=== PATIENT | male | born 1970 | race African-American/Black ===

== ENCOUNTER 2019-09-20 15:52 | Inpatient (IN) | payer MEDICAID ==
[~2019-09-20] VITALS: Ht 182.9 cm; Wt 85.8 kg
[2019-09-20] MEDS ORDERED: IV NORMAL SALINE 1,000ML 1,000 ML IV SCH (16:03)
[2019-09-20] MEDS ORDERED: ONDANSETRON PF 4 MG/2 ML VIAL. IVP ONE (16:15)
[2019-09-20] MEDS ORDERED: diphenhydrAMINE 50 MG/ML VIAL ONE (16:19)
--- NOTE | 2019-09-20 16:24 | EKG ---
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
[2019-09-20 16:25] LABS: BASO # 0.1 x10^3/uL (0.0-0.2); BASO % 2 % (0-3); EOS # 0.7 x10^3/uL (0.0-0.7); EOS % 9 % (0-3); HEMATOCRIT 38.5 % (39.0-53.0); HEMOGLOBIN 12.4 g/dL (13.0-17.5); LYMPH # 1.3 x10^3/uL (1.0-4.8); LYMPH % 16 % (24-48); MEAN CORPUSCULAR HEMOGLOBIN 29 pg (25-35); MEAN CORPUSCULAR HGB CONC 32 g/dL (31-37); MEAN CORPUSCULAR VOLUME 90 fL (79-100); MONO # 0.8 x10^3/uL (0.0-1.1); MONO % 10 % (0-9); NEUT # 4.9 x10^3uL (1.8-7.7); NEUT % 63 % (31-73); PLATELET COUNT 279 x10^3/uL (140-400); RED CELL DISTRIBUTION WIDTH 15.5 % (11.5-14.5); WHITE BLOOD COUNT 7.8 x10^3/uL (4.0-11.0)
[2019-09-20 16:30] LABS: CALCIUM 8.9 mg/dL (8.5-10.1); CREATININE 0.9 mg/dL (0.7-1.3); GFR 108.1; POTASSIUM 3.8 mmol/L (3.5-5.1)
[2019-09-20] MEDS ORDERED: diphenhydrAMINE 50 MG/ML VIAL IVP ONE ×2 (16:30→19:15)
[2019-09-20 16:36] LABS: ALBUMIN 3.3 g/dL (3.4-5.0); ALBUMIN/GLOBULIN RATIO 0.9 (1.0-1.7); TOTAL BILIRUBIN 0.1 mg/dL (0.2-1.0)
--- NOTE | 2019-09-20 17:31 | RAD ---
CT ABDOMEN PELVIS WO CONTRAST Indication: Abdominal pain. Exposure: One or more of the following individualized dose reduction techniques were utilized for this examination: 1. Automated exposure control 2. Adjustment of the mA and/or kV according to patient size 3. Use of iterative reconstruction technique. Comparison: None are available. Technique: No intravenous contrast given. No oral contrast per request. Findings: Evaluation of solid viscera, bowel and vasculature is compromised by the noncontrast technique. Comparison: Abdomen CT scan 07/02/2019. FINDINGS: There is some image degradation due to the patient's arms which are at the side. Nodularity at the confluence of the right minor fissure and right major fissure, partially seen on the uppermost slice, measuring 7 mm. This was not included on the prior study. Another smaller nodule just medial to this is partially seen, measures 4 mm. There is some patchy opacity in the right dependent lower lobe. Mild dependent opacity or atelectasis in the left posterior lower lobe. Liver and spleen appear unremarkable. The pancreas is difficult to separate from adjacent unopacified bowel loops but no evidence of focal attenuation abnormality. No evidence of adrenal mass. Kidneys demonstrate no evidence of hydronephrosis or renal calculus. Gallbladder surgically absent. Aorta is nonaneurysmal. No significant pathologic lymph node enlargement is identified. Inferior vena cava filter is noted. Note that some of the legs of the filter protrude beyond the lumen of the inferior vena cava. Stomach is not distended. No significant small bowel distention. Moderate stool throughout the colon and rectum. No evidence of colonic wall thickening. The appendix appears normal. No evidence of ascites. No evidence of pneumoperitoneum. The urinary bladder appears unremarkable. No evidence of pelvic mass. Degenerative changes of the lower spine, particularly the lumbosacral junction. Vertebral body height and alignment intact. No evidence of acute fracture or aggressive bone destruction. Degenerative changes at both hips. IMPRESSION: 1. Mild opacities in both posterior lower lungs, with somewhat more confluent components in the right lower lobe. This may represent pneumonia, but recommend short-term follow-up CT chest in one or 2 months or after acute treatment for further evaluation. 2. Areas of nodularity in the right lung base, partially visualized. Significance uncertain, but these could be further evaluated on follow-up CT chest is recommended above. Electronically signed by: Ashutosh Dumont MD (09/20/2019 5:28 PM) [facility]
--- NOTE | 2019-09-20 18:01 | PHYS DOC ---
Past History Past Medical History: High Cholesterol, Hypertension, Other Additional Past Medical Histor: sarcodosis; pancreatitis Past Surgical History: Cholecystectomy Alcohol Use: None Adult General Chief Complaint Chief Complaint: SHORTNESS OF BREATH HPI HPI Patient is a 49-year-old male who presents with complaint of shortness of breath, stating that it feels like his throat is swelling and he has swelling to his jaws. Patient also indicates that he has epigastric abdominal pain radiating into his back. Patient states he has a history of pancreatitis and rates the pain at a 10 out of 10. Patient also indicates that he has had nausea and vomiting. Staff noticed the patient still had remnants of stickers on the chest and had asked when was the last time he had been admitted and he stated it was over a month ago. When confronted by me, patient does admit that he was just released from [facility] yesterday and states that he thought that he was better but he is just not getting better and he feels like he needs to be admitted into the hospital again.[] Review of Systems Review of Systems Constitutional: Denies fever or chills [] Respiratory: Complains of shortness of breath [] Cardiovascular: No additional information not addressed in HPI [] GI: Complains of abdominal pain with nausea and vomiting. Denies diarrhea [] Musculoskeletal: Complains of mid back pain [] Integument: Denies rash or skin lesions [] Neurologic: Denies headache, focal weakness or sensory changes [] All other systems were reviewed and found to be within normal limits, except as documented in this note. Current Medications Current Medications Current Medications Medications (Trade) Dose Ordered Sig/Ruth Start Time Stop Time Status Last Admin Dose Admin Diphenhydramine HCl (Benadryl) 50 mg STK-MED ONCE 09/20/19 16:19 09/20/19 16:19 DC Fentanyl Citrate (Fentanyl 2ml Vial) 50 mcg PRN Q15MIN PRN 09/20/19 16:15 09/21/19 16:14 Lorazepam (Ativan Inj) 2 mg 1X ONCE 09/20/19 16:30 09/20/19 16:38 DC 09/20/19 16:30 2 MG Ondansetron HCl (Zofran) 4 mg 1X ONCE 09/20/19 16:15 09/20/19 16:19 DC Sodium Chloride 1,000 ml @ 1,000 mls/hr Q1H 2/22/20 16:03 09/20/19 17:02 DC 09/20/19 16:03 1,000 MLS/HR Allergies Allergies Allergies Coded Allergies Type Severity Reaction Last Updated Verified NSAIDS (Non-Steroidal Anti-Inflamma Allergy Unknown 09/20/19 Yes iodine Allergy Unknown 09/20/19 Yes ketorolac Allergy Unknown 09/20/19 Yes methylprednisolone Allergy Unknown 09/20/19 Yes morphine Allergy Unknown 09/20/19 Yes prednisone Allergy Unknown 09/20/19 Yes Physical Exam Physical Exam Constitutional: Well developed, well nourished, appears anxious. [] HENT: Normocephalic, atraumatic, bilateral external ears normal, oropharynx moist, no oral exudates, nose normal. [] Eyes: PERRLA, EOMI, conjunctiva normal, no discharge. [] Neck: Normal range of motion, no tenderness, supple, no stridor. [] Cardiovascular: Tachycardic rate with regular rhythm[] Lungs & Thorax: Bilateral breath sounds clear to auscultation [] Abdomen: Bowel sounds normal, soft, with epigastric tenderness. [] Skin: Warm, dry, no erythema, no rash. [] Extremities: No tenderness, no cyanosis, no clubbing, ROM intact. [] Neurologic: Alert and oriented X 3, no focal deficits noted. [] Current Patient Data Vital Signs Vital Signs Date Time Temp Pulse Resp B/P (MAP) Pulse Ox O2 Delivery O2 Flow Rate FiO2 09/20/19 16:35 98.6 140 36 147/91 (109) 98 Room Air Lab Results Laboratory Tests Test 09/20/19 16:08 White Blood Count 7.8 x10^3/uL (4.0-11.0) Red Blood Count 4.30 x10^6/uL (4.30-5.70) Hemoglobin 12.4 g/dL (13.0-17.5) L Hematocrit 38.5 % (39.0-53.0) L Mean Corpuscular Volume 90 fL (79-100) Mean Corpuscular Hemoglobin 29 pg (25-35) Mean Corpuscular Hemoglobin Concent 32 g/dL (31-37) Red Cell Distribution Width 15.5 % (11.5-14.5) H Platelet Count 279 x10^3/uL (140-400) Neutrophils (%) (Auto) 63 % (31-73) Lymphocytes (%) (Auto) 16 % (24-48) L Monocytes (%) (Auto) 10 % (0-9) H Eosinophils (%) (Auto) 9 % (0-3) H Basophils (%) (Auto) 2 % (0-3) Neutrophils # (Auto) 4.9 x10^3uL (1.8-7.7) Lymphocytes # (Auto) 1.3 x10^3/uL (1.0-4.8) Monocytes # (Auto) 0.8 x10^3/uL (0.0-1.1) Eosinophils # (Auto) 0.7 x10^3/uL (0.0-0.7) Basophils # (Auto) 0.1 x10^3/uL (0.0-0.2) Sodium Level 145 mmol/L (136-145) Potassium Level 3.8 mmol/L (3.5-5.1) Chloride Level 108 mmol/L (98-107) H Carbon Dioxide Level 28 mmol/L (21-32) Anion Gap 9 (6-14) Blood Urea Nitrogen 13 mg/dL (8-26) Creatinine 0.9 mg/dL (0.7-1.3) Estimated GFR (Cockcroft-Gault) 108.1 BUN/Creatinine Ratio 14 (6-20) Glucose Level 129 mg/dL (70-99) H Calcium Level 8.9 mg/dL (8.5-10.1) Total Bilirubin 0.1 mg/dL (0.2-1.0) L Aspartate Amino Transferase (AST) 16 U/L (15-37) Alanine Aminotransferase (ALT) 23 U/L (16-63) Alkaline Phosphatase 114 U/L (46-116) Troponin I Quantitative < 0.017 ng/mL (0-0.055) Total Protein 7.0 g/dL (6.4-8.2) Albumin 3.3 g/dL (3.4-5.0) L Albumin/Globulin Ratio 0.9 (1.0-1.7) L Lipase 245 U/L (73-393) EKG EKG [] Radiology/Procedures Radiology/Procedures [] Impressions: PROCEDURE: CT ABDOMEN PELVIS WO CONTRAST CT ABDOMEN PELVIS WO CONTRAST Indication: Abdominal pain. Exposure: One or more of the following individualized dose reduction techniques were utilized for this examination: 1. Automated exposure control 2. Adjustment of the mA and/or kV according to patient size 3. Use of iterative reconstruction technique. Comparison: None are available. Technique: No intravenous contrast given. No oral contrast per request. Findings: Evaluation of solid viscera, bowel and vasculature is compromised by the noncontrast technique. Comparison: Abdomen CT scan 07/02/2019. FINDINGS: There is some image degradation due to the patient's arms which are at the side. Nodularity at the confluence of the right minor fissure and right major fissure, partially seen on the uppermost slice, measuring 7 mm. This was not included on the prior study. Another smaller nodule just medial to this is partially seen, measures 4 mm. There is some patchy opacity in the right dependent lower lobe. Mild dependent opacity or atelectasis in the left posterior lower lobe. Liver and spleen appear unremarkable. The pancreas is difficult to separate from adjacent unopacified bowel loops but no evidence of focal attenuation abnormality. No evidence of adrenal mass. Kidneys demonstrate no evidence of hydronephrosis or renal calculus. Gallbladder surgically absent. Aorta is nonaneurysmal. No significant pathologic lymph node enlargement is identified. Inferior vena cava filter is noted. Note that some of the legs of the filter protrude beyond the lumen of the inferior vena cava. Stomach is not distended. No significant small bowel distention. Moderate stool throughout the colon and rectum. No evidence of colonic wall thickening. The appendix appears normal. No evidence of ascites. No evidence of pneumoperitoneum. The urinary bladder appears unremarkable. No evidence of pelvic mass. Degenerative changes of the lower spine, particularly the lumbosacral junction. Vertebral body height and alignment intact. No evidence of acute fracture or aggressive bone destruction. Degenerative changes at both hips. IMPRESSION: 1. Mild opacities in both posterior lower lungs, with somewhat more confluent components in the right lower lobe. This may represent pneumonia, but recommend short-term follow-up CT chest in one or 2 months or after acute treatment for further evaluation. 2. Areas of nodularity in the right lung base, partially visualized. Significance uncertain, but these could be further evaluated on follow-up CT chest is recommended above. Electronically signed by: Ashutosh Dumont MD (09/20/2019 5:28 PM) [id number] Course & Med Decision Making Course & Med Decision Making Pertinent Labs and Imaging studies reviewed. (See chart for details) [] Dragon Disclaimer Dragon Disclaimer This electronic medical record was generated, in whole or in part, using a voice recognition dictation system. Departure Departure: Impression: Primary Impression: Epigastric abdominal pain Additional Impressions: Facial pain Dyspnea Disposition: ADMITTED INPATIENT Admitting Physician: Joce Espinoza Condition: IMPROVED Referrals: PCP,NO (PCP) Problem Qualifiers Additional Impressions: Dyspnea Dyspnea type: unspecified Qualified Codes: R06.00 - Dyspnea, unspecified DELORES GALARZA Jr. DO Sep 20, 2019 18:01
[2019-09-20] MEDS ORDERED: ACETAMINOPHEN 325 MG TABLET PO PRN (18:15)
[2019-09-20 19:30] VITALS: BP 138/83
[2019-09-20] MEDS ORDERED: DIPH25CA58 PO (20:08)
[2019-09-20] MEDS ORDERED: FENT1PAT91 TD (20:08)
[2019-09-20] MEDS ORDERED: LISI10TA2 PO (20:08)
[2019-09-20] MEDS ORDERED: PROM25AM6 IJ (20:08)
[2019-09-20] MEDS ORDERED: OXYC5TAB88 PO (20:08)
[2019-09-20] MEDS ORDERED: APIX5TAB3 PO (20:08)
[2019-09-20] MEDS ORDERED: OXYC10TA46 PO (20:08)
[2019-09-20] MEDS ORDERED: PROMETHAZINE 25 MG SUPP.RECT. PR PRN (20:30)
[2019-09-20] MEDS: diphenhydrAMINE HCL 25 MG CAPSULE PO SCH (20:39)
[2019-09-20] MEDS: oxyCODONE ER 10 MG TAB.ER.12H PO SCH (20:40)
[2019-09-20] MEDS ORDERED: APIXABAN 5 MG TABLET. PO SCH (21:00)
[2019-09-20] MEDS: IPRATRPIUM/ALBUTEROL 0.5/2.5MG 3 ML NEBU. NEB SCH (21:45)
[2019-09-20] MEDS: oxyCODONE IR 5 MG TABLET PO PRN (23:00)
[2019-09-20] MEDS: IV NORMAL SALINE 1,000ML 1,000 ML IV SCH (23:00)
[2019-09-20 23:15] VITALS: BP 143/90
[2019-09-21 01:05] LABS: BARBITURATES NEG (NEG); BENZODIAZEPINES NEG (NEG); CANNABINOIDS NEG (NEG); COCAINE NEG (NEG); METHADONE NEG (NEG); OPIATES POS (NEG); PHENCYCLIDINE NEG (NEG)
[2019-09-21 01:06] LABS: AMPHETAMINE/METHAMPHETAMINE NEG (NEG)
[2019-09-21 01:11] LABS: BILIRUBIN,URINE NEG (NEG); CLARITY,URINE CLEAR; COLOR,URINE YELLOW; GLUCOSE,URINE NEG (NEG); NITRITE,URINE NEG (NEG); RBC,URINE OCC /HPF (0-2); UROBILINOGEN,URINE 0.2 mg/dL (0.2 mg/dL); WBC,URINE OCC /HPF (0-4)
[2019-09-21 01:12] LABS: BACTERIA,URINE 0 /HPF (0-FEW); SQUAMOUS EPITHELIAL CELL,UR OCC /LPF
[2019-09-21] MEDS ORDERED: ATOR40TA59 PO (01:42)
[2019-09-21] MEDS ORDERED: AMLO10TA4 PO (01:42)
[2019-09-21] MEDS ORDERED: OXYC1TAB22 PO (01:42)
[2019-09-21] MEDS ORDERED: LORA-254 PO (01:42)
[2019-09-21] MEDS ORDERED: PANT40TA3 PO (01:42)
[2019-09-21] MEDS: oxyCODONE/APAP 10/325 1 TAB TABLET PO PRN ×2 (04:36→10:31)
[2019-09-21] MEDS: APIXABAN 5 MG TABLET. PO SCH ×2 (05:00→07:57)
[2019-09-21 05:32] VITALS: BP 133/83
[2019-09-21] MEDS: IPRATRPIUM/ALBUTEROL 0.5/2.5MG 3 ML NEBU. NEB SCH ×2 (05:33→09:30)
[2019-09-21 06:54] LABS: ALBUMIN 2.7 g/dL (3.4-5.0); ALBUMIN/GLOBULIN RATIO 0.7 (1.0-1.7); CALCIUM 8.4 mg/dL (8.5-10.1); CREATININE 0.8 mg/dL (0.7-1.3); GFR 123.8; POTASSIUM 3.8 mmol/L (3.5-5.1); TOTAL BILIRUBIN 0.1 mg/dL (0.2-1.0); TOTAL PROTEIN 6.5 g/dL (6.4-8.2)
[2019-09-21 07:04] LABS: BASO # 0.1 x10^3/uL (0.0-0.2); BASO % 1 % (0-3); EOS # 0.7 x10^3/uL (0.0-0.7); EOS % 13 % (0-3); HEMATOCRIT 37.4 % (39.0-53.0); HEMOGLOBIN 11.9 g/dL (13.0-17.5); LYMPH # 1.2 x10^3/uL (1.0-4.8); LYMPH % 23 % (24-48); MEAN CORPUSCULAR HEMOGLOBIN 29 pg (25-35); MEAN CORPUSCULAR HGB CONC 32 g/dL (31-37); MEAN CORPUSCULAR VOLUME 91 fL (79-100); MONO # 0.7 x10^3/uL (0.0-1.1); MONO % 13 % (0-9); NEUT # 2.6 x10^3uL (1.8-7.7); NEUT % 49 % (31-73); PLATELET COUNT 244 x10^3/uL (140-400); RED BLOOD COUNT 4.14 x10^6/uL (4.30-5.70); RED CELL DISTRIBUTION WIDTH 15.2 % (11.5-14.5); WHITE BLOOD COUNT 5.3 x10^3/uL (4.0-11.0)
[2019-09-21] MEDS: diphenhydrAMINE HCL 25 MG CAPSULE PO SCH ×2 (07:56→13:00)
[2019-09-21] MEDS: oxyCODONE ER 10 MG TAB.ER.12H PO SCH (07:56)
[2019-09-21] MEDS: oxyCODONE IR 5 MG TABLET PO PRN (08:25)
[2019-09-21] MEDS ORDERED: FAMOTIDINE 20 MG/2 ML VIAL ONE (09:15)
[2019-09-21] MEDS ORDERED: diphenhydrAMINE 50 MG/ML VIAL ONE (09:15)
[2019-09-21] MEDS ORDERED: LORazepam 1 MG TABLET PO ONE (09:15)
[2019-09-21] MEDS: IV NORMAL SALINE 1,000ML 1,000 ML IV SCH (09:29)
[2019-09-21] MEDS ORDERED: diphenhydrAMINE 50 MG/ML VIAL IVP ONE (09:30)
[2019-09-21] MEDS ORDERED: IPRATRPIUM/ALBUTEROL 0.5/2.5MG 3 ML NEBU. NEB PRN (09:30)
[2019-09-21] MEDS ORDERED: FAMOTIDINE 20 MG/2 ML VIAL IVP ONE (09:30)
[2019-09-21 11:00] VITALS: BP 187/92
--- NOTE | 2019-09-21 11:14 | RAD ---
CT of the head and CT of the soft tissue neck without contrast Indication: Pain and swelling Exposure: One or more of the following individualized dose reduction techniques were utilized for this examination: 1. Automated exposure control 2. Adjustment of the mA and/or kV according to patient size 3. Use of iterative reconstruction technique. Technique: Standard imaging without intravenous contrast. Head: No evidence of acute intracranial hemorrhage, mass effect, midline shift or abnormal extra-axial fluid collection. Valentin-white matter distinction is intact. Ventricles and sulci are symmetric. Visualized orbits appear symmetric. No notable scalp swelling. Mild mucosal thickening within right renal sinus. Minimal left maxillary sinus mucosal thickening. Mastoids appear clear. No acute labral abnormality. IMPRESSION: No evidence of acute intracranial hemorrhage. Soft tissue neck: Note that evaluation may be limited without intravenous contrast. The airway appears patent and midline. No significant tonsillar enlargement. No parapharyngeal soft tissue fluid collection. Multiple air pockets are identified bilaterally, adjacent to the larynx, may represent laryngoceles. The thyroid appears symmetric. Lung apices are clear. The parotid glands and submandibular glands appear symmetric. Visualized orbits unremarkable. No gross soft tissue asymmetry is identified in the neck. No specific focal area of swelling is indicated. No abnormal soft tissue fluid collection. No evidence of pathologic lymph node enlargement. Degenerative spondylosis. Vertebral body height and alignment are intact. Facet joints demonstrate mild degenerative change. No high-grade central osseous spinal stenosis. Bilateral neural foraminal narrowing. No aggressive bone destruction is seen. IMPRESSION: 1. Air-containing structures in the bilateral paralaryngeal tissues, may represent laryngoceles. 2. No acute findings are identified, within constraints of a noncontrast exam. Electronically signed by: Ashutosh Dumont MD (09/21/2019 11:11 AM) [id number]
[2019-09-21] MEDS ORDERED: OXYC5TAB2 PO (12:25)
--- NOTE | 2019-09-21 15:40 | SSS ---
ADMIT DATE: 09/21/2019 HISTORY OF PRESENT ILLNESS: The patient is a 49-year-old -[place] male patient who came to the Emergency Room complaining of shortness of breath. He stated that he has sarcoidosis and pancreatitis. He has also enlarged parotid gland and he claims that having difficulty breathing. However, he was extensively investigated and on review of systems he actually denied any cough. Denied any nasal congestion or sore throat. Denied any cough or shortness of breath. He was admitted with a complaint of facial pain and epigastric discomfort. However, his lab work showed his serum lipase was normal. He was in fact extensively investigated and has had a CT scan of the abdomen and pelvis, which basically showed that the patient has mild opacities in both posterior lower lungs, somewhat more confluent components in the right lower lobe. This may represent pneumonia, but recommended short-term followup CT chest in 1-2 months after acute treatment for further evaluation. He has also areas of nodularity in the right lung base partially visualized, significance uncertain, but these could be further evaluated. He was treated in the Emergency Room with Benadryl, lorazepam and ondansetron. He was given 1 liter of normal saline and was admitted for further evaluation and treatment. PAST MEDICAL HISTORY: Significant for hypertension, hyperlipidemia. He also claimed that he has sarcoidosis and chronic pancreatitis. PAST SURGICAL HISTORY: Significant for cholecystectomy. He has also IVC filter. He claims that also has factor V Leiden and history of PE and DVT, for which he has an inferior vena cava filter. FAMILY HISTORY: Unremarkable. SOCIAL HISTORY: He does not smoke, drink alcohol or use any recreational drugs. ALLERGIES: He is allergic to ALL NONSTEROIDAL ANTI-INFLAMMATORY MEDICATION, IODINE, KETOROLAC, METHYLPREDNISONE, MORPHINE and PREDNISONE. MEDICATIONS: He is currently on following medications: He is on diphenhydramine 50 mg 4 times a day, apixaban 5 mg twice a day, atorvastatin calcium 40 mg at bedtime, amlodipine 10 mg once a day. He is on OxyContin 10 mg twice a day and oxycodone every 6 hours. He is on lorazepam 1 mg daily, Protonix 40 mg once a day. I do not see any EpiPen written there. PHYSICAL EXAMINATION: GENERAL: On arrival to the Emergency Room, the patient looked well and was clearly in no apparent respiratory distress. No pallor, jaundice, cyanosis or thyromegaly. No jugular venous distention. No lower limb edema. VITAL SIGNS: His heart rate initially was 140, blood pressure 147/91, temperature was 98.6, respiratory rate was 36 and oxygen saturation was 98%. HEAD, EYES, EARS, NOSE AND THROAT: Showed he is normocephalic, atraumatic. Has bilateral parotid gland seems to be enlarged. NECK: Supple, with no lymphadenopathy, no thyromegaly, no jugular venous distension, no audible bruits. HEART: Showed normal first and second heart sounds. No gallop or murmur. CHEST: Clear to auscultation. No crepitation or rhonchi. ABDOMEN: Distended, soft, nontender. No guarding or rigidity. No organomegaly. All hernial orifices intact. Bowel sounds normal. NEUROLOGIC: He was definitely awake, alert, responding appropriately. All cranial nerves intact. EXTREMITIES: He moves extremities without difficulty. He ambulates without assistance or assistive devices. LABORATORY DATA: On admission showed a white cell count of 7800, hemoglobin 12.4, hematocrit 38, MCV 90 and platelet count 279,000 with normal manual differential. His chemistry showed serum sodium of 145, potassium 3.8, chloride 108, bicarbonate 28, anion gap of 9, BUN 13, creatinine 0.9, estimated GFR was 108 mL per minute, his glucose 129, calcium was 8.9. Total bilirubin, AST, ALT, alkaline phosphatase were normal. Total protein 7, albumin 3.3. Serum lipase was 145. Urinalysis showed the urine was yellow, clear with pH of 5.5, specific gravity of 1.030. The urine was negative for protein, glucose, ketones, blood, nitrite, leukocyte esterase. There are occasional rbc's, occasional wbc's and no bacteria. His toxic screen was positive for opiates, but negative for methadone, barbiturate, phencyclidine, amphetamine, methamphetamine, benzodiazepine, cocaine, cannabinoids and ethyl alcohol. He was admitted and continued to claim that his throat is tightening and he was pointing to his parotid glands. However, throughout his stay here, his oxygen saturation was between 95-100% on room air. We did a CT scan of the head and cervical spine and his CT scan of the head showed no evidence of acute intracranial hemorrhage, mass effect, midline shift or abnormal extraaxial fluid collection. The escobar-white matter distinction is intact. Ventricles and sulci are symmetric. Visualized orbits appear symmetrical. No notable scalp swelling. There is mild mucosal thickening within the right frontal sinus, minimal left maxillary sinus mucosal thickening. Mastoid appear clear. No acute labral abnormality. The CT scan of the soft tissue of the neck showed that the airway appears patent and midline. No significant tonsillar enlargements. No parapharyngeal soft tissue fluid collection. Multiple air pockets were identified bilaterally adjacent to the larynx, may represent laryngocele. The thyroid appears symmetric. Lung apices are clear. The parotid glands and submandibular glands appear symmetric. Visualized orbits are unremarkable. No gross soft tissue asymmetry is identified in the neck. No specific focal area of swelling is identified. No abnormal soft tissue fluid collection. No evidence of pathological lymph node enlargement. He has degenerative spondylosis of vertebral body heights and alignments are intact. Facet joints demonstrates mild degenerative changes. No high grade central osseous spinal stenosis, bilateral neural foramina narrowing. No aggressive bone destruction is seen. I have actually surveyed the literature and his presentation is not consistent with angioedema. There is no correlation between sarcoidosis and angioneurotic edema and he has never had any swelling of his lips or his tongue. He was able to talk without difficulty. His oxygen saturation was 98% even when he was claiming that he is having tightening of his throat and during our conversation, it became clear that he has marked discrepancy in what he says. He said he has EpiPen and he said that he came to visit friends here. When we tried to discharge him, he said he has no friends and does not have anybody here and when I was in the process of discharging him, he came and whispered that he wanted the oxycodone without the Tylenol. ASSESSMENT AND PLAN: Basically, the patient was discharged with a prescription for EpiPen and also prescription for oxycodone 10 mg every 6 hours, a total of 20 tablets and was advised that he should keep his EpiPen always with him and that he should follow with his primary care physician in [facility]. NEHA BARRETO MD DR: SALLY/vladimir JOB#: [id number] / [id number]
== END 2019-09-21 12:10 | disposition home or self-care (01) | DRG 193 ==
LOC: ER 15:52 → 1 SOUTH 19:16
PROVIDERS: ADMIT Internal Medicine; ATTEND Internal Medicine
DX: J18.9 Pneumonia, unspecified organism (principal); K85.90 Acute pancreatitis without necrosis or infection, unspecified; K86.1 Other chronic pancreatitis; D86.9 Sarcoidosis, unspecified; E78.00 Pure hypercholesterolemia, unspecified; E78.5 Hyperlipidemia, unspecified; I10 Essential (primary) hypertension; K11.1 Hypertrophy of salivary gland
CPT/HCPCS: 36415; 70450; 72125; 74176; 80053; 80307; 81001; 82550; 83690; 84484; 85025; 93005; 94640; J1200; J2060; J3490; J7620; Q0163; J7030

== ENCOUNTER 2020-03-15 23:52 | Emergency (ER) | payer MEDICAID ==
[~2020-03-15] VITALS: Ht 182.9 cm; Wt 85.8 kg
[2020-03-15 23:52] VITALS: BP 187/92
[~2020-03-15 23:52] MED LIST: AMLO10TA4 PO; APIX5TAB3 PO; ATOR40TA59 PO; DIPH25CA58 PO; FENT1PAT91 TD; LISI10TA2 PO; LORA-254 PO; OXYC10TA46 PO; OXYC1TAB22 PO; OXYC5TAB2 PO; OXYC5TAB88 PO; PANT40TA3 PO; PROM25AM6 IJ
--- NOTE | 2020-03-16 00:28 | PHYS DOC ---
Past History Past Medical History: High Cholesterol, Hypertension, Other Additional Past Medical Histor: sarcodosis; pancreatitis Past Surgical History: Cholecystectomy Alcohol Use: None General Adult EDM: Chief Complaint: Chest pain, facial swelling HPI: HPI: 49-year-old male presents with chest pain and facial swelling. He has been having intermittent chest pain throughout the day. The patient has sarcoidosis and states he has these chest pain episodes on occasion. Today he also developed bilateral facial swelling in the general area of the parotid glands. He states this is also happened before due to his inflammatory disorders. The patient has multiple allergies to different kinds of medications. His primary physician is in [facility]. He has been admitted at [facility] in the past. He lives in [place] now. The patient has had to be intubated in the past. He is having face and neck pain, but is not short of breath currently. The patient denies fever chills. Review of Systems: Review of Systems: Constitutional: Denies fever or chills Eyes: Denies change in visual acuity HENT: facial swelling Respiratory: Denies cough or shortness of breath Cardiovascular: Chest pain GI: Denies abdominal pain, nausea, vomiting, bloody stools or diarrhea : Denies dysuria Musculoskeletal: Denies back pain or joint pain Integument: Denies rash Neurologic: Denies headache, focal weakness or sensory changes Endocrine: Denies polyuria or polydipsia Lymphatic: Denies swollen glands Psychiatric: Denies depression or anxiety Heart Score: Risk Factors: Risk Factors: DM, Current or recent (<one month) smoker, HTN, HLP, family history of CAD, obesity. Risk Scores: Score 0 - 3: 2.5% MACE over next 6 weeks - Discharge Home Score 4 - 6: 20.3% MACE over next 6 weeks - Admit for Clinical Observation Score 7 - 10: 72.7% MACE over next 6 weeks - Early Invasive Strategies Allergies: Allergies: Allergies Coded Allergies Type Severity Reaction Last Updated Verified NSAIDS (Non-Steroidal Anti-Inflamma Allergy Unknown 09/20/19 Yes iodine Allergy Unknown 09/20/19 Yes ketorolac Allergy Unknown 09/20/19 Yes methylprednisolone Allergy Unknown 09/20/19 Yes morphine Allergy Unknown 09/20/19 Yes prednisone Allergy Unknown 09/20/19 Yes Physical Exam: PE: Constitutional: Well developed, well nourished, no acute distress, non-toxic appearance. [] HENT: Mallampati 3, bilateral facial swelling in the area of the parotid glands [] Eyes: PERRLA, EOMI, conjunctiva normal, no discharge. [] Neck: Normal range of motion, no tenderness, supple, no stridor. [] Cardiovascular: Heart rate regular rhythm, no murmur [] Lungs & Thorax: Bilateral breath sounds clear to auscultation [] Abdomen: Bowel sounds normal, soft, no tenderness, no masses, no pulsatile masses. [] Skin: Warm, dry, no erythema, no rash. [] Back: No tenderness, no CVA tenderness. [] Extremities: No tenderness, no cyanosis, no clubbing, ROM intact, no edema. [] Neurologic: Alert and oriented X 3, normal motor function, normal sensory function, no focal deficits noted. [] Psychologic: Affect normal, judgement normal, mood normal. [] EKG: EKG: Sinus rhythm, rate 77, normal axis, no ST elevations or depressions. [] Radiology/Procedures: Radiology/Procedures: [] Impressions: INDICATION: Reason: Chest pain / Spl. Instructions: / History: COMPARISON: October 2008 FINDINGS: Single view of chest obtained. Cardiomediastinal silhouette is similar to prior with repeat demonstration of prominence of the bilateral pulmonary hilum. No definite new region of consolidation or pulmonary edema. No gross osseous destructive lesion. IMPRESSION: * No focal airspace consolidation or edema. Electronically signed by: Nataly Connolly MD (03/16/2020 12:37 AM) [id number] DICTATED AND SIGNED BY: NATALY CONNOLLY MD DATE: 03/16/20 003 CC: YI CLARK DO; PCP,NO ~ Course & Med Decision Making: Course & Med Decision Making Pertinent Labs and Imaging studies reviewed. 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 He is allergic to many medications including prednisone and IV steroids. I believe the patient needs a CT scan of his face and neck. Our CT scanner is down in the emergency room. There is a significant delay to get him to our backup machine at the hospital. The patient likely also needs specialty care due to his history and chest pain rule out. I will transfer him to [facility]. I spoke with Dr. Haq and he has agreed to accept the patient ER to ER. [] Seth Disclaimer: Seth Disclaimer: This electronic medical record was generated, in whole or in part, using a voice recognition dictation system. Departure Departure: Impression: Primary Impression: Facial swelling Additional Impressions: Chest pain Qualified Codes: R07.2 - Precordial pain Sarcoidosis Disposition: XFER SHT-TRM HOSP Condition: STABLE Referrals: PCP,NO (PCP) Justification of Admission: Justification of Admission: Justification of Admission Dx: N/A YI CLARK DO Mar 16, 2020 00:28
--- NOTE | 2020-03-16 00:40 | RAD ---
INDICATION: Reason: Chest pain / Spl. Instructions: / History: COMPARISON: October 2008 FINDINGS: Single view of chest obtained. Cardiomediastinal silhouette is similar to prior with repeat demonstration of prominence of the bilateral pulmonary hilum. No definite new region of consolidation or pulmonary edema. No gross osseous destructive lesion. IMPRESSION: * No focal airspace consolidation or edema. Electronically signed by: Jermaine Connolly MD (03/16/2020 12:37 AM) [id number]
[2020-03-16] MEDS ORDERED: diphenhydrAMINE 50 MG/ML VIAL ONE (00:41)
[2020-03-16] MEDS ORDERED: HYDROmorphone PF 1 MG/ML DISP.SYRIN IV ONE (00:45)
[2020-03-16] MEDS ORDERED: diphenhydrAMINE 50 MG/ML VIAL IVP ONE (01:00)
--- NOTE | 2020-03-16 06:41 | EKG ---
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
== END 2020-03-16 00:56 | disposition short-term general hospital (02) ==
LOC: ER 23:52
DX: R07.2 Precordial pain (principal); R22.0 Localized swelling, mass and lump, head; D86.9 Sarcoidosis, unspecified; E78.00 Pure hypercholesterolemia, unspecified; I10 Essential (primary) hypertension; Z88.6 Allergy status to analgesic agent; Z88.5 Allergy status to narcotic agent; Z88.8 Allergy status to other drugs, medicaments and biological substances
CPT/HCPCS: 71045; 93005; 96374; 96375; 99285; J1170; J1200

== ENCOUNTER 2020-03-29 22:07 | Emergency (ER) | payer MEDICAID ==
[~2020-03-29] VITALS: Ht 182.9 cm; Wt 85.8 kg
[2020-03-29] MEDS ORDERED: diphenhydrAMINE 50 MG/ML VIAL ONE (22:42)
[2020-03-29] MEDS ORDERED: FAMOTIDINE 20 MG/2 ML VIAL ONE (22:42)
[2020-03-29] MEDS ORDERED: FAMOTIDINE 20 MG/2 ML VIAL IVP ONE (23:00)
[2020-03-29] MEDS ORDERED: diphenhydrAMINE 50 MG/ML VIAL IVP ONE (23:00)
[2020-03-29 23:37] VITALS: BP 161/106
[2020-03-30] MEDS ORDERED: HYDROmorphone PF 1 MG/ML DISP.SYRIN IVP ONE (00:30)
--- NOTE | 2020-03-30 00:54 | PHYS DOC ---
Past History Past Medical History: High Cholesterol, Hypertension, Other Additional Past Medical Histor: sarcodosis; pancreatitis Past Surgical History: Cholecystectomy Alcohol Use: None General Adult EDM: Chief Complaint: DYSPNEA/RESPIRATOY DISTRESS HPI: HPI: 49-year-old male returns emergency room with shortness of breath and facial swelling. He states that this all started less than an hour prior to arrival. He has been intubated multiple times with facial swelling. 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 He is not sure of an exact diagnosis. He tells me that his face feels swollen and his throat feels tight. The patient was seen by myself earlier this month with similar symptoms and transferred to [facility]. He states that he does not really know what they did over there because he was intubated. He was not discharged on any medications. He supposed to carry an EpiPen but does not have it. Denies fever or chills. Review of Systems: Review of Systems: Constitutional: Denies fever or chills Eyes: Denies change in visual acuity HENT: Face and throat swelling Respiratory: shortness of breath Cardiovascular: Denies chest pain or edema GI: Denies abdominal pain, nausea, vomiting, bloody stools or diarrhea : Denies dysuria Musculoskeletal: Denies back pain or joint pain Integument: Denies rash Neurologic: Denies headache, focal weakness or sensory changes Endocrine: Denies polyuria or polydipsia Lymphatic: Denies swollen glands Psychiatric: Denies depression or anxiety Heart Score: Risk Factors: Risk Factors: DM, Current or recent (<one month) smoker, HTN, HLP, family history of CAD, obesity. Risk Scores: Score 0 - 3: 2.5% MACE over next 6 weeks - Discharge Home Score 4 - 6: 20.3% MACE over next 6 weeks - Admit for Clinical Observation Score 7 - 10: 72.7% MACE over next 6 weeks - Early Invasive Strategies Current Medications: Current Meds: Current Medications Medications (Trade) Dose Ordered Sig/Ruth Start Time Stop Time Status Last Admin Dose Admin Diphenhydramine HCl (Benadryl) 50 mg STK-MED ONCE 03/29/20 22:42 03/29/20 22:42 DC Epinephrine HCl (EPINEPHrine AMPULE) 1 mg 1X ONCE 03/29/20 23:45 03/29/20 23:46 DC Famotidine (Pepcid Vial) 20 mg STK-MED ONCE 03/29/20 22:42 03/29/20 22:42 DC Hydromorphone HCl (Dilaudid) 1 mg 1X ONCE 03/30/20 00:30 03/30/20 00:31 DC 03/30/20 00:31 1 MG Lorazepam (Ativan Inj) 2 mg 1X ONCE 03/30/20 00:30 03/30/20 00:31 DC 03/30/20 00:31 2 MG Allergies: Allergies: Allergies Coded Allergies Type Severity Reaction Last Updated Verified NSAIDS (Non-Steroidal Anti-Inflamma Allergy Unknown 09/20/19 Yes iodine Allergy Unknown 09/20/19 Yes ketorolac Allergy Unknown 09/20/19 Yes methylprednisolone Allergy Unknown 09/20/19 Yes morphine Allergy Unknown 09/20/19 Yes prednisone Allergy Unknown 09/20/19 Yes Physical Exam: PE: Constitutional: Well developed, well nourished, mild acute distress, non-toxic appearance. [] HENT: Normocephalic, atraumatic, bilateral external ears normal, oropharynx Mallampati class III, no oral exudates, nose normal. Bilateral swelling at or near the parotid glands. [] Eyes: PERRLA, EOMI, conjunctiva normal, no discharge. [] Neck: Normal range of motion, no tenderness, supple, no stridor. [] Cardiovascular: Heart rate 100, regular rhythm, no murmur [] Lungs & Thorax: Bilateral breath sounds clear to auscultation. O2 97% on room air [] Abdomen: Bowel sounds normal, soft, no tenderness, no masses, no pulsatile masses. [] Skin: Warm, dry, no erythema, no rash. [] Back: No tenderness, no CVA tenderness. [] Extremities: No tenderness, no cyanosis, no clubbing, ROM intact, no edema. [] Neurologic: Alert and oriented X 3, normal motor function, normal sensory function, no focal deficits noted. [] Psychologic: Affect normal, judgement normal, mood anxious. [] Current Patient Data: Vital Signs: Vital Signs Date Time Temp Pulse Resp B/P (MAP) Pulse Ox O2 Delivery O2 Flow Rate FiO2 03/29/20 23:37 97.9 66 30 161/106 (124) 100 EKG: EKG: [] Radiology/Procedures: Radiology/Procedures: [] Course & Med Decision Making: Course & Med Decision Making Pertinent Labs and Imaging studies reviewed. (See chart for details) The patient is making vocal noises and taking weird breaths. This is similar to when I saw him before. His heart rate, blood pressure, and respirations do not seem to line up with his complaint. He subjectively says that he is short of breath, but his vitals say otherwise. He does not have stridor. It was extremely difficult getting an IV on the patient. We do not have first-line med ications for hereditary angioedema. I spoke with [facility] and they do have the medication. I then discussed transfer with Dr. Ramos and she looked up his chart over there and expressed doubt that this was truly hereditary angioedema. While I was contemplating his transfer, the patient refused his septic and epinephrine injection. She advised that we watch the patient and see what develops. I gave the patient Dilaudid for his pain and Ativan for his anxiety. I then started to look at his chart and a CT of the head and neck September 21, 2019 shows symmetrical bilateral swelling in the region of the parotids, but no laryngeal swelling or airway edema. When I looked at his previous admission at [facility], he did not appear to get any specific treatment while in the ICU. They waited for his swelling to improve and then he was extubated. I was unable to see all of this chart. This appears as though it may have some behavioral component. Throughout his time in the emergency room, he is admitted no less than 95% O2 on room air. His heart rate is normal. His blood pressure is 129/69. The patient fell asleep and had absolutely no difficulty breathing. He had no other concerning findings. The patient appears to have a behavioral condition for secondary gain. He is stable for discharge at this time. [] Dragon Disclaimer: Dragon Disclaimer: This electronic medical record was generated, in whole or in part, using a voice recognition dictation system. Departure Departure: Impression: Primary Impression: Munchausen syndrome Additional Impression: Facial swelling Disposition: HOME/RESIDENCE PRIOR TO ADM Condition: STABLE Referrals: PCP,NO (PCP) Justification of Admission: Justification of Admission: Justification of Admission Dx: N/A YI CLARK DO Mar 30, 2020 00:54
--- NOTE | 2020-03-30 02:55 | EKG ---
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
[2020-03-30] MEDS ORDERED: HYDROcodone/APAP 5/325MG 1 TAB TABLET PO ONE (03:00)
== END 2020-03-30 03:02 | disposition home or self-care (01) ==
LOC: ER 22:07
DX: F68.10 Factitious disorder imposed on self, unspecified (principal); R22.0 Localized swelling, mass and lump, head; E78.00 Pure hypercholesterolemia, unspecified; I10 Essential (primary) hypertension; Z88.6 Allergy status to analgesic agent; Z88.5 Allergy status to narcotic agent; Z88.8 Allergy status to other drugs, medicaments and biological substances
CPT/HCPCS: 93005; 96374; 96375; 99284; J1170; J1200; J2060; J3490